=== PATIENT | male | born 1935 | race Caucasian/White ===

== ENCOUNTER 2016-06-20 12:11 | Emergency (ER) | payer MEDICARE, MEDICAID ==
[2016-06-20 12:25] VITALS: BP 128/67
[2016-06-20] MEDS ORDERED: Tamsulosin 0.4 MG Cap.ER PO ONE (13:42)
--- NOTE | 2016-06-20 13:51 | EDM.PDOC ---
[id number]: [facility] Time Seen by Provider: 06/20/16 13:43 Source of Information: Reports: Patient, Family - History of Present Illness INITIAL COMMENTS - FREE TEXT/NARRATIVE: pt was seen earlier and he had urinary retention and was quite uncomfortable. He went home and tried to pull his cath out. he had the bulb in the urethra. He began to bleed a fair amount in the urine and he was brought back in by private car. Onset: Sudden Duration: Hour(s):, Other (Pt tried to pull out his cath. ) Associated Symptoms: Reports: No Other Symptoms Abdominal Pain Score (Numeric/FACES): 2 - Related Data Allergies Allergy/AdvReac Type Severity Reaction Status Date / Time No Known Allergies Allergy Verified 01/29/15 05:31 Home Meds: Home Meds Acetaminophen [Tylenol Arthritis Pain] 650 mg PO Q6H PRN 01/29/15 [History] Aspirin 325 mg PO DAILY 01/29/15 [History] Carbamide Peroxide [Debrox 6.5% Otic Soln] 5 drop EARBOTH ASDIRECTED PRN [History] Clotrimazole [Clotrimazole] 1 applic TOP BID PRN 01/29/15 [History] Fluocinonide [Lidex 0.05% Crm] 1 applic TOP TID 01/29/15 [History] Lisinopril/Hydrochlorothiazide [Lisinopril-Hctz 20-12.5 mg Tab] 1 tab PO DAILY 01/29/15 [History] Metoprolol Tartrate [Lopressor] 50 mg PO BID 01/29/15 [History] Polyethylene Glycol 3350 [MiraLAX] 17 g PO DAILY 01/29/15 [History] Simvastatin [Simvastatin] 40 mg PO BEDTIME 01/29/15 [History] Triamcinolone Acetonide [Kenalog 0.1% Crm] 1 applic TOP BID PRN 01/29/15 [ History] levETIRAcetam [Levetiracetam] 500 mg PO BID 01/29/15 [History] Past Medical History HEENT History: Reports: Hard of Hearing Cardiovascular History: Reports: CAD, High Cholesterol, Hypertension Gastrointestinal History: Reports: Other (See Below) Other Gastrointestinal History: large RlQ hernia soft, size of basketball, denies pain tympanic to palp Genitourinary History: Reports: Other (See Below) Other Genitourinary History: diffculty voiding Neurological History: Reports: CVA, Seizure Oncologic (Cancer) History: Reports: Other (See Below) Other Oncologic History: skin ca Dermatologic History: Reports: Seborrheic Dermatitis, Other (See Below) Other Dermatologic History: fungus toenails. chronic skin rashes on scalp and face Social & Family History - Tobacco Use Smoking Status *Q: Never Smoker Years of Tobacco use: 50 - Recreational Drug Use Recreational Drug Use: No ED ROS GENERAL - Review of Systems Review Of Systems: See Below Constitutional: Reports: No Symptoms HEENT: Reports: No Symptoms Respiratory: Reports: No Symptoms Cardiovascular: Reports: No Symptoms Endocrine: Reports: No Symptoms GI/Abdominal: Reports: No Symptoms : Reports: Other (urine in the cath looked quite bloody and there were a few small clots. ) Musculoskeletal: Reports: No Symptoms Skin: Reports: No Symptoms ED EXAM, GI/ABD - Physical Exam Exam: See Below Text/Narrative:: pt arrived with bloody urine after he tried to pull out his hammer cath Exam Limited By: No Limitations General Appearance: Alert, Other ( alot of instruction was given to the pt that he could not pull out his cath. ) Eyes: Bilateral: Normal Appearance, EOMI Ears: Normal TMs Nose: Normal Inspection (Male) Exam: Other ( urine is quite bloody. ) Rectal (Males) Exam: Deferred Extremities: Normal Inspection Course - Vital Signs Last Recorded V/S: Last Vital Signs Temp 97.7 C H 06/20/16 12:24 Pulse 60 06/20/16 12:24 Resp 20 06/20/16 12:24 BP 128/67 06/20/16 12:24 Pulse Ox - Orders/Labs/Meds Labs: Laboratory Tests 06/20/16 06/20/16 06/20/16 Range/Units 12:25 12:25 12:34 WBC 10.5 (4.5-11.0) K/uL RBC 3.98 L (4.30-5.90) M/uL Hgb 12.6 (12.0-15.0) g/dL Hct 36.9 L (40.0-54.0) % MCV 93 (80-98) fL MCH 32 H (27-31) pg MCHC 34 (32-36) % Plt Count 279 (150-400) K/uL Neut % (Auto) 74 H (36-66) % Lymph % (Auto) 17 L (24-44) % [place] % (Auto) 7 H (2-6) % Eos % (Auto) 2 (2-4) % Baso % (Auto) 1 (0-1) % Sodium 136 L (140-148) mmol/L Potassium 3.3 L (3.6-5.2) mmol/L Chloride 98 L (100-108) mmol/L Carbon Dioxide 28 (21-32) mmol/L Anion Gap 13.3 (5.0-14.0) mmol/L BUN 14 (7-18) mg/dL Creatinine 1.3 (0.8-1.3) mg/dL Est Cr Clr Drug Dosing 35.26 mL/min Estimated GFR (MDRD) 53 L (>60) Glucose 94 (74-106) mg/dL Calcium 7.8 L (8.5-10.1) mg/dL Total Bilirubin 0.8 (0.2-1.0) mg/dL AST 18 (15-37) U/L ALT 11 L (12-78) U/L Alkaline Phosphatase 107 (46-116) U/L Total Protein 6.7 (6.4-8.2) g/dL Albumin 2.8 L (3.4-5.0) g/dL Globulin 3.9 H (2.3-3.5) g/dL Albumin/Globulin Ratio 0.7 L (1.2-2.2) Urine Color Yellow Urine Appearance Clear Urine pH 7.0 (4.5-8.0) Ur Specific [place] 1.010 (1.008-1.030) Urine Protein Negative (NEGATIVE) mg/dL Urine Glucose (UA) Normal (NEGATIVE) mg/dL Urine Ketones Negative (NEGATIVE) mg/dL Urine Occult Blood Negative (NEGATIVE) Urine Nitrite Negative (NEGAITVE) Urine Bilirubin Negative (NEGATIVE) Urine Urobilinogen Normal (NORMAL) mg/dL Ur Leukocyte Esterase Negative (NEGATIVE) Urine RBC 0-5 (0-5) Urine WBC 0-5 (0-5) Ur Epithelial Cells Not seen Amorphous Sediment Not seen Urine Bacteria Not seen Urine Mucus Rare Meds: Medications Discontinued Medications Generic Name Dose Route Start Last Admin Trade Name Freq PRN Reason Stop Dose Admin Tamsulosin HCl 0.4 mg 06/20/16 13:42 06/20/16 14:05 Flomax PO 06/20/16 13:43 0.4 mg ONETIME ONE Administration - Re-Assessments/Exams Free Text/Narrative Re-Assessment/Exam: 06/21/16 18:31 cath was readjusted and put back in the bladder. Departure - Departure Time of Disposition: 14:40 Disposition: Home, Self-Care 01 Clinical Impression: Urinary retention - Discharge Information Instructions: Acute Urinary Retention, Male, [id number] Referrals: PCP,None [Primary Care Provider] - Forms: ED Department Discharge Care Plan Goals: appt with Dr Washington for Friday for cath removal, flomax >4 daily, push fluids rtc if problem.
== END 2016-06-20 14:37 | disposition home or self-care (01) ==
LOC: JP.ED 12:11
DX: R33.9 Retention of urine, unspecified (principal); I25.10 Atherosclerotic heart disease of native coronary artery without angina pectoris; E78.00 Pure hypercholesterolemia, unspecified; I10 Essential (primary) hypertension; Z86.73 Personal history of transient ischemic attack (TIA), and cerebral infarction without residual deficits; Z79.82 Long term (current) use of aspirin; Z79.899 Other long term (current) drug therapy
CPT/HCPCS: 36415; 51702; 80053; 81001; 85025; 99284; A9270; 99283

== ENCOUNTER 2016-06-20 15:47 | Emergency (ER) | payer MEDICARE, MEDICAID ==
[2016-06-20 16:49] VITALS: BP 156/75
--- NOTE | 2016-06-20 18:36 | EDM.PDOC ---
ED HPI GENERAL MEDICAL PROBLEM - General Chief Complaint: Genitourinary Problem Stated Complaint: RECHECK Time Seen by Provider: 06/20/16 18:20 Source of Information: Reports: Family History Limitations: Reports: No Limitations - History of Present Illness INITIAL COMMENTS - FREE TEXT/NARRATIVE: History of present illness: [This patient was turned over and to me by Dr. Chapa. He has urinary retention and needs a Min catheter in but has a tendency to pull it out. He came in and then another one was placed he was observed and it was functioning although there was some bloody returns. His daughters are trying to take care of him at home. But eventually this may not work but we're going to try again. He is a patient of Dr. Washington's.] Review of systems: As per history of present illness and below otherwise all systems reviewed and negative. Past medical history: As per history of present illness and as reviewed below otherwise noncontributory. Surgical history: As per history of present illness and as reviewed below otherwise noncontributory. Social history: No reported history of drug or alcohol abuse. Family history: As per history of present illness and as reviewed below otherwise noncontributory. Physical exam: See Dr. Chapa note for physical exam Diagnostics: [] Therapeutics: [] Impression: [Urinary retention requiring Min catheter] Plan: [He is to followup with Dr. Washington but if he becomes obstructed he'll have to return to the ER] Definitive disposition and diagnosis as appropriate pending reevaluation and review of above. Penis Pain Score (Numeric/FACES): 4 - Related Data Allergies Allergy/AdvReac Type Severity Reaction Status Date / Time No Known Allergies Allergy Verified 01/29/15 05:31 Home Meds: Home Meds Acetaminophen [Tylenol Arthritis Pain] 650 mg PO Q6H PRN 01/29/15 [History] Aspirin 325 mg PO DAILY 01/29/15 [History] Carbamide Peroxide [Debrox 6.5% Otic Soln] 5 drop EARBOTH ASDIRECTED PRN [History] Clotrimazole [Clotrimazole] 1 applic TOP BID PRN 01/29/15 [History] Fluocinonide [Lidex 0.05% Crm] 1 applic TOP TID 01/29/15 [History] Lisinopril/Hydrochlorothiazide [Lisinopril-Hctz 20-12.5 mg Tab] 1 tab PO DAILY 01/29/15 [History] Metoprolol Tartrate [Lopressor] 50 mg PO BID 01/29/15 [History] Polyethylene Glycol 3350 [MiraLAX] 17 g PO DAILY 01/29/15 [History] Simvastatin [Simvastatin] 40 mg PO BEDTIME 01/29/15 [History] Triamcinolone Acetonide [Kenalog 0.1% Crm] 1 applic TOP BID PRN 01/29/15 [ History] levETIRAcetam [Levetiracetam] 500 mg PO BID 01/29/15 [History] Past Medical History HEENT History: Reports: Hard of hearing Cardiovascular History: Reports: CAD, High cholesterol, Hypertension Gastrointestinal History: Reports: Other (see below) Other Gastrointestinal History: large RlQ hernia soft, size of basketball, denies pain tympanic to palp Genitourinary History: Reports: Other (see below) Other Genitourinary History: diffculty voiding Neurological History: Reports: CVA, Seizure Oncologic (Cancer) History: Reports: Other (see below) Other Oncologic History: skin ca Dermatologic History: Reports: Seborrheic dermatitis, Other (see below) Other Dermatologic History: fungus toenails. chronic skin rashes on scalp and face Social & Family History - Tobacco Use Smoking Status *Q: Never Smoker Years of Tobacco use: 50 - Recreational Drug Use Recreational Drug Use: No ED ROS GENERAL - Review of Systems Review Of Systems: ROS reveals no pertinent complaints other than HPI. ED EXAM, RENAL/ - Physical Exam Exam: Not Obtained Course - Vital Signs Last Recorded V/S: Last Vital Signs Temp 36.3 C 06/20/16 15:57 Pulse 76 06/20/16 15:57 Resp 18 06/20/16 15:57 BP 156/75 H 06/20/16 15:57 Pulse Ox 96 06/20/16 15:57 Departure - Departure Time of Disposition: 18:35 Disposition: Home, Self-Care 01 Condition: good Clinical Impression: Urinary retention - Discharge Information Forms: ED Department Discharge Additional Instructions: Please make an appointment to see Dr. Washington
== END 2016-06-20 18:47 | disposition home or self-care (01) ==
LOC: JP.ED 15:47
DX: R33.9 Retention of urine, unspecified (principal); I25.10 Atherosclerotic heart disease of native coronary artery without angina pectoris; E78.00 Pure hypercholesterolemia, unspecified; I10 Essential (primary) hypertension; Z79.82 Long term (current) use of aspirin; Z79.899 Other long term (current) drug therapy; Z86.73 Personal history of transient ischemic attack (TIA), and cerebral infarction without residual deficits
CPT/HCPCS: 36415; 51702; 80053; 81001; 85025; 99282; 99283; 99284; A9270

== ENCOUNTER 2016-08-05 15:20 | Emergency (ER) | payer MEDICARE, MEDICAID ==
[2016-08-05] MEDS ORDERED: Sodium Chloride 0.9% 10 ML Syringe FLUSH PRN ×2 (15:51→16:22)
--- NOTE | 2016-08-05 15:56 | EDM.PDOC ---
ED HPI GENERAL MEDICAL PROBLEM - General Chief Complaint: Back Pain or Injury Stated Complaint: [facility] Time Seen by Provider: 08/05/16 15:44 Source of Information: Reports: Patient, EMS, Family, RN Notes Reviewed History Limitations: Reports: No Limitations - History of Present Illness INITIAL COMMENTS - FREE TEXT/NARRATIVE: 80-year-old gentleman presents emergency department day complaint of chest and back pain, he has a known seizure disorder he had a seizure yesterday had fallen to the ground injured himself. He presents today for increasing level pain predominately in his chest wall on the right side and mid back. He is physically impaired difficult with hearing, majority review of systems was taken from family - Related Data Allergies Allergy/AdvReac Type Severity Reaction Status Date / Time No Known Allergies Allergy Verified 01/29/15 05:31 Home Meds: Home Meds Acetaminophen [Tylenol Arthritis Pain] 650 mg PO Q6H PRN 01/29/15 [History] Aspirin 325 mg PO DAILY 01/29/15 [History] Carbamide Peroxide [Debrox 6.5% Otic Soln] 5 drop EARBOTH ASDIRECTED PRN [History] Clotrimazole [Clotrimazole] 1 applic TOP BID PRN 01/29/15 [History] Fluocinonide [Lidex 0.05% Crm] 1 applic TOP TID 01/29/15 [History] Lisinopril/Hydrochlorothiazide [Lisinopril-Hctz 20-12.5 mg Tab] 1 tab PO DAILY 01/29/15 [History] Metoprolol Tartrate [Lopressor] 50 mg PO BID 01/29/15 [History] Polyethylene Glycol 3350 [MiraLAX] 17 g PO DAILY 01/29/15 [History] Simvastatin [Simvastatin] 40 mg PO BEDTIME 01/29/15 [History] Triamcinolone Acetonide [Kenalog 0.1% Crm] 1 applic TOP BID PRN 01/29/15 [ History] levETIRAcetam [Levetiracetam] 500 mg PO BID 01/29/15 [History] Tamsulosin [Tamsulosin 24 Hr] 0.4 mg PO DAILY 08/05/16 [History] Past Medical History HEENT History: Reports: Hard of Hearing Cardiovascular History: Reports: CAD, High Cholesterol, Hypertension Gastrointestinal History: Reports: Other (See Below) Other Gastrointestinal History: large RlQ hernia soft, size of basketball, denies pain tympanic to palp Genitourinary History: Reports: Other (See Below) Other Genitourinary History: diffculty voiding Neurological History: Reports: CVA, Seizure Oncologic (Cancer) History: Reports: Other (See Below) Other Oncologic History: skin ca Dermatologic History: Reports: Seborrheic Dermatitis, Other (See Below) Other Dermatologic History: fungus toenails. chronic skin rashes on scalp and face - Infectious Disease History Infectious Disease History: Reports: Chicken Pox, Measles, Mumps Social & Family History - Tobacco Use Smoking Status *Q: Never Smoker Years of Tobacco use: 50 - Recreational Drug Use Recreational Drug Use: No Review of Systems - Review of Systems Review Of Systems: See Below Constitutional: Reports: No Symptoms Respiratory: Reports: Shortness of Breath Cardiovascular: Reports: Chest Pain GI/Abdominal: Reports: Abdominal Pain Genitourinary: Reports: No Symptoms Musculoskeletal: Reports: No Symptoms Skin: Reports: No Symptoms Neurological: Reports: No Symptoms ED EXAM, GENERAL - Physical Exam Exam: See Below Exam Limited By: Physical Impairment General Appearance: Alert, No Apparent Distress Head: Atraumatic, Normocephalic Neck: Normal Inspection, Supple, Non-Tender, Full Range of Motion Respiratory/Chest: No Respiratory Distress, Lungs Clear, Normal Breath Sounds, No Accessory Muscle Use, Other (Tender to palpation along the right anterior wall) Cardiovascular: Regular Rate, Rhythm, No Murmur GI/Abdominal: Normal Bowel Sounds, Soft, Other (Large ventral hernia appreciated on the right side) Back Exam: Normal Inspection, Full Range of Motion, Paraspinal Tenderness ( Right side). No: CVA Tenderness (R), CVA Tenderness (L) Extremities: Normal Inspection, Non-Tender, Pedal Edema Course - Vital Signs Last Recorded V/S: Last Vital Signs Temp 96.6 F 08/05/16 15:21 Pulse 86 08/05/16 16:58 Resp 16 08/05/16 16:58 BP 154/80 H 08/05/16 16:58 Pulse Ox 90 L 08/05/16 16:58 - Orders/Labs/Meds Orders: Active Orders 24 hr Category Date Time Status Peripheral IV Care [RC] . DIRECTED Care 08/05/16 15:52 Active Chest w Cont [CT] Stat Exams 08/05/16 15:51 Taken CULTURE URINE [RM] Urgent Lab 08/05/16 17:38 Uncollected KEPPRA [REF] Stat Lab 08/05/16 16:01 Received Sodium Chloride 0.9% [Saline Flush] Med 08/05/16 15:51 Active 10 ml FLUSH ASDIRECTED PRN Sodium Chloride 0.9% [Saline Flush] Med 08/05/16 16:22 Active 10 ml FLUSH ONETIME PRN Peripheral IV Insertion Adult [OM.PC] Urgent Oth 08/05/16 15:51 Ordered Medication Orders Sodium Chloride (Saline Flush) 10 ml FLUSH ASDIRECTED PRN PRN Reason: Keep Vein Open Last Admin: 08/05/16 16:13 Dose: 10 ml Sodium Chloride (Saline Flush) 10 ml FLUSH ONETIME PRN PRN Reason: PER RADIOLOGY PROTOCOL Last Admin: 08/05/16 16:59 Dose: 10 ml Labs: Laboratory Tests 08/05/16 08/05/16 08/05/16 Range/Units 16:01 16:01 16:01 WBC 10.3 (4.5-11.0) K/uL RBC 3.85 L (4.30-5.90) M/uL Hgb 11.9 L (12.0-15.0) g/dL Hct 36.1 L (40.0-54.0) % MCV 94 (80-98) fL MCH 31 (27-31) pg MCHC 33 (32-36) % Plt Count 222 (150-400) K/uL Neut % (Auto) 78 H (36-66) % Lymph % (Auto) 12 L (24-44) % [place] % (Auto) 9 H (2-6) % Eos % (Auto) 1 L (2-4) % Baso % (Auto) 1 (0-1) % Sodium 130 L (140-148) mmol/L Potassium 3.6 (3.6-5.2) mmol/L Chloride 96 L (100-108) mmol/L Carbon Dioxide 29 (21-32) mmol/L Anion Gap 8.6 (5.0-14.0) mmol/L BUN 17 (7-18) mg/dL Creatinine 1.2 (0.8-1.3) mg/dL Est Cr Clr Drug Dosing 38.18 mL/min Estimated GFR (MDRD) 58 L (>60) Glucose 89 (74-106) mg/dL Calcium 8.2 L (8.5-10.1) mg/dL Total Bilirubin 1.9 H D (0.2-1.0) mg/dL AST 18 (15-37) U/L ALT 8 L (12-78) U/L Alkaline Phosphatase 127 H (46-116) U/L Troponin I < 0.017 (0.000-0.056) ng/mL Total Protein 6.8 (6.4-8.2) g/dL Albumin 2.5 L (3.4-5.0) g/dL Globulin 4.3 H (2.3-3.5) g/dL Albumin/Globulin Ratio 0.6 L (1.2-2.2) Urine Color Urine Appearance Urine pH (4.5-8.0) Ur Specific [place] (1.008-1.030) Urine Protein (NEGATIVE) mg/dL Urine Glucose (UA) (NEGATIVE) mg/dL Urine Ketones (NEGATIVE) mg/dL Urine Occult Blood (NEGATIVE) Urine Nitrite (NEGAITVE) Urine Bilirubin (NEGATIVE) Urine Urobilinogen (NORMAL) mg/dL Ur Leukocyte Esterase (NEGATIVE) Urine RBC (0-5) Urine WBC (0-5) Ur Epithelial Cells Amorphous Sediment Urine Bacteria Urine Mucus // Range/Units 16:42 WBC (4.5-11.0) K/uL RBC (4.30-5.90) M/uL Hgb (12.0-15.0) g/dL Hct (40.0-54.0) % MCV (80-98) fL MCH (27-31) pg MCHC (32-36) % Plt Count (150-400) K/uL Neut % (Auto) (36-66) % Lymph % (Auto) (24-44) % [place] % (Auto) (2-6) % Eos % (Auto) (2-4) % Baso % (Auto) (0-1) % Sodium (140-148) mmol/L Potassium (3.6-5.2) mmol/L Chloride (100-108) mmol/L Carbon Dioxide (21-32) mmol/L Anion Gap (5.0-14.0) mmol/L BUN (7-18) mg/dL Creatinine (0.8-1.3) mg/dL Est Cr Clr Drug Dosing mL/min Estimated GFR (MDRD) (>60) Glucose (74-106) mg/dL Calcium (8.5-10.1) mg/dL Total Bilirubin (0.2-1.0) mg/dL AST (15-37) U/L ALT (12-78) U/L Alkaline Phosphatase (46-116) U/L Troponin I (0.000-0.056) ng/mL Total Protein (6.4-8.2) g/dL Albumin (3.4-5.0) g/dL Globulin (2.3-3.5) g/dL Albumin/Globulin Ratio (1.2-2.2) Urine Color Yellow Urine Appearance Slightly cloudy Urine pH 7.0 (4.5-8.0) Ur Specific [place] 1.005 L (1.008-1.030) Urine Protein Negative (NEGATIVE) mg/dL Urine Glucose (UA) Normal (NEGATIVE) mg/dL Urine Ketones Negative (NEGATIVE) mg/dL Urine Occult Blood Negative (NEGATIVE) Urine Nitrite Negative (NEGAITVE) Urine Bilirubin Negative (NEGATIVE) Urine Urobilinogen Normal (NORMAL) mg/dL Ur Leukocyte Esterase Moderate (NEGATIVE) Urine RBC Not seen (0-5) Urine WBC 10-20 H (0-5) Ur Epithelial Cells Not seen Amorphous Sediment Not seen Urine Bacteria Few Urine Mucus Not seen Meds: Medications Generic Name Dose Route Start Last Admin Trade Name Freq PRN Reason Stop Dose Admin Sodium Chloride 10 ml 08/05/16 15:51 08/05/16 16:13 Saline Flush FLUSH 10 ml ASDIRECTED PRN Administration Keep Vein Open Sodium Chloride 10 ml 08/05/16 16:22 08/05/16 16:59 Saline Flush FLUSH 10 ml ONETIME PRN Administration PER RADIOLOGY PROTOCOL Discontinued Medications Generic Name Dose Route Start Last Admin Trade Name Freq PRN Reason Stop Dose Admin Hydromorphone HCl 1 mg 08/05/16 17:37 Dilaudid IM 08/05/16 17:38 ONETIME ONE Sodium Chloride 75 mls @ 3 mls/sec 08/05/16 16:22 08/05/16 16:59 Normal Saline IV 08/05/16 16:23 3 mls/sec ONETIME ONE Administration Iopamidol 100 ml 08/05/16 16:22 08/05/16 16:59 Isovue-300 (61%) IV 08/05/16 16:23 100 ml . DIRECTED PRN Administration RADIOLOGY EXAM Departure - Departure Time of Disposition: 17:47 Disposition: Home, Self-Care 01 Condition: Fair Clinical Impression: Urinary tract infection Qualifiers: Urinary tract infection type: acute cystitis Hematuria presence: without hematuria Qualified Code(s): N30.00 - Acute cystitis without hematuria Ribs, multiple fractures Qualifiers: Encounter type: initial encounter Fracture type: closed Laterality: right Qualified Code(s): S22.41XA - Multiple fractures of ribs, right side, initial encounter for closed fracture - Discharge Information Forms: ED Department Discharge Additional Instructions: take full course of antibiotics,, use ibuprofen for baseline pain control use Percocet for breakthrough pain, Please followup with your primary care provider in 3-5 days if not better, please call return to the emergency department with worsening of symptoms. - My Orders Last 24 Hours: My Active Orders 08/05/16 15:51 Chest w Cont [CT] Stat Sodium Chloride 0.9% [Saline Flush] 10 ml FLUSH ASDIRECTED PRN Peripheral IV Insertion Adult [OM.PC] Urgent 08/05/16 15:52 Peripheral IV Care [RC] . DIRECTED 08/05/16 16:01 KEPPRA [REF] Stat 08/05/16 16:22 Sodium Chloride 0.9% [Saline Flush] 10 ml FLUSH ONETIME PRN 08/05/16 17:38 CULTURE URINE [RM] Urgent - Assessment/Plan Last 24 Hours: My Active Orders 08/05/16 15:51 Chest w Cont [CT] Stat Sodium Chloride 0.9% [Saline Flush] 10 ml FLUSH ASDIRECTED PRN Peripheral IV Insertion Adult [OM.PC] Urgent 08/05/16 15:52 Peripheral IV Care [RC] . DIRECTED 08/05/16 16:01 KEPPRA [REF] Stat 08/05/16 16:22 Sodium Chloride 0.9% [Saline Flush] 10 ml FLUSH ONETIME PRN 08/05/16 17:38 CULTURE URINE [RM] Urgent Plan: Assessment Acuity = acute Site and laterality = breakthrough seizures resulting in rib fractures of 567 and 9,with urinary tract infection Etiology = unclear etiology Manifestations = none Location of injury = home Lab values = CBC unremarkable sodium low at 1:30 consistent hyponatremia bilirubin elevated 1.9 consistent hyperbilirubinemia albumin low at 2.5 consistent hypoalbuminemia urinalysis reveals 10-20 WBCs consistent with pyuria cultures pending Keppra levels pending CT scan shows new rib fractures 567 and 9 nondisplaced multiple old for rib fractures are appreciated there is a small right pleural effusion and as well is a 5 x 3 mm nodule right upper lobe recommend follow-up in one year Plan I did review lab work CT scan results them he did receive Dilaudid in the ED for pain control plan is to discharge home with Percocet and also started him on ciprofloxacin for 10 days for his urinary tract infection cultures pending him follow-up with primary care 3-5 days for reevaluation Patient was in agreement with the plan all questions were answered, they were instructed to return to the emergency department or call for worsening symptoms. This note was dictated using [employer] voice recognition software please call with any questions.
[2016-08-05] MEDS ORDERED: Sodium Chloride 0.9% 75 ML IV ONE (16:22)
[2016-08-05] MEDS ORDERED: Iopamidol 612 MG/ML 100 ML Bottle IV PRN (16:22)
[2016-08-05 16:59] VITALS: BP 154/80
[2016-08-05] MEDS ORDERED: HYDROmorphone 1 MG/ML Syringe IM ONE (17:37)
== END 2016-08-05 18:05 | disposition home or self-care (01) ==
LOC: JP.ED 15:20
DX: S22.41XA Multiple fractures of ribs, right side, initial encounter for closed fracture (principal); G40.909 Epilepsy, unspecified, not intractable, without status epilepticus; N30.00 Acute cystitis without hematuria; I25.10 Atherosclerotic heart disease of native coronary artery without angina pectoris; E78.00 Pure hypercholesterolemia, unspecified; I10 Essential (primary) hypertension; Z86.73 Personal history of transient ischemic attack (TIA), and cerebral infarction without residual deficits; Z79.899 Other long term (current) drug therapy; Z79.82 Long term (current) use of aspirin; W19.XXXA Unspecified fall, initial encounter
CPT/HCPCS: 36415; 71260; 80053; 80177; 81001; 84484; 85025; 87086; 87088; 87186; 96372; 99284; J1170; J7030; J7050; Q9967

== ENCOUNTER 2016-08-19 18:23 | Inpatient (IN) | payer MEDICARE, MEDICAID ==
[2016-08-19] MEDS ORDERED: Sodium Chloride 0.9% 10 ML Syringe FLUSH PRN (18:29)
[2016-08-19] MEDS ORDERED: Sodium Chloride 0.9% 1,000 ML IV SCH ×3 (18:30→21:30)
[2016-08-19] MEDS ORDERED: cefTRIAXone 1 GM in Sodium Chloride 0.9% 50 ML IV ONE (19:38)
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
[2016-08-19] MEDS ORDERED: HYDROmorphone 0.5 MG/0.5 ML Syringe IVPUSH ONE (20:06)
[2016-08-19] MEDS ORDERED: Ondansetron 4 MG/2 ML SDV IV PRN (21:29)
[2016-08-19] MEDS ORDERED: Clotrimazole 1% Crm 30 GM Tube TOP PRN (21:33)
[2016-08-20] MEDS ORDERED: Simvastatin 20 MG Tab PO ONE (01:00)
[2016-08-20] MEDS ORDERED: levETIRAcetam 250 MG Tab PO ONE (01:00)
--- NOTE | 2016-08-20 02:24 | HP ---
CHIEF COMPLAINT: Increased weakness and abdominal pain. HISTORY OF PRESENT ILLNESS: An 80-year-old, who lives with one of his daughters, sounds like his condition has gradually worsened over the last few weeks getting progressively weaker, not eating very well. Sounds like at home, couple weeks ago, he fell and injured some ribs, was seen by his regular physician, I believe Dr. Washington. I am not sure what transpired with that visit, sounds like few days ago he was up walking with his walker. Since then, has not been able to get up and has had some stool accidents, although it sounds like it has not been overly loose up until when he arrived in the ER, was advised by emergency room physician he has had a long-standing large abdominal hernia and that they elected not to do anything with, it sounds like it has been causing him more pain and has had some rash to the area, which has possibly worsened, difficult to tell based on what the family is telling me. Patient has not had any nausea or vomiting. No report of any chest pain or trouble breathing. Sounds like he maybe ate a little bit this morning, but overall has not be eating very much over the last few days at least. PAST MEDICAL HISTORY: He has had a history of seizure disorder, hypertension, had a history of skin cancer what sounds like melanoma which spread to the lymph nodes. He has had an aneurysm, possibly surgery to his abdomen number of years ago, has had what sounds like bowel obstruction surgery in the past, but this is not clear either. MEDICATIONS: Aspirin 325 mg daily, acetaminophen 650 mg q.6 hours p.r.n., clotrimazole topically b.i.d., Lidex cream t.i.d., lisinopril hydrochlorothiazide 20/12.5 daily, metoprolol 50 mg b.i.d., MiraLAX daily, simvastatin 40 mg at bedtime, tamsulosin 0.4 mg daily, triamcinolone cream b.i.d., Keppra 500 mg b.i.d. ALLERGIES: NO KNOWN DRUG ALLERGIES. SOCIAL HISTORY: Remote smoker. No alcohol use. Lives with his daughter. FAMILY HISTORY: Unknown. REVIEW OF SYSTEMS: Really unable to get much of anything else out of him and that is what I am able to get out of the patient's family. OBJECTIVE: VITAL SIGNS: Pulse 52, blood pressure 107/74, O2 saturation 96% on room air. HEENT: The patient has dentures, but he is not wearing them at present. Dry mucous membranes, it is difficult for me to get him to open up his mouth. NECK: Supple. No obvious thyromegaly, JVD, carotid bruits. LUNGS: I could listen to sounded clear, he would not really take a deep breath. HEART: Sounds regular. ABDOMEN: Soft. Does have a protuberant ventral hernia with erythema and superficial ulcerations underneath it with generalized discomfort. EXTREMITIES: No significant edema. SKIN: Other than his abdomen was unremarkable, though I was not able to see his hips or buttocks if he has any pressure sores there. LABORATORY DATA: White count 27,000, hemoglobin 11.8, platelets 413,000. Sodium 134, potassium 4.2, chloride 100, BUN is 37, creatinine 1.9, glucose 151. Liver functions, AST and ALT were normal. Alkaline phosphatase was 185. Lactic acid was elevated at 2.9. ASSESSMENT: Increased weakness with dehydration, admitted for IV fluids. Has had renal insufficiency and we will recheck this in the morning and see if it improves with IV fluids. The patient is already started on Rocephin for possible abdominal cellulitis, which we will re-evaluate in the morning. I did talk to the daughter who is from [place] just happened to be here, not his primary caregiver whom he lives with and she was insisting that he probably is going to need [facility]cf[facility] placement, so we will have Social Service work on that tomorrow also and we will admit him under inpatient, anticipate more than two midnight stay. Judson Dunbar MD /[id number]
[2016-08-20] MEDS ORDERED: Clotrimazole 1% Crm 30 GM Tube TOP PRN (07:24)
[2016-08-20] MEDS: levETIRAcetam 250 MG Tab PO SCH ×2 (09:43→21:00)
[2016-08-20] MEDS: Aspirin 325 MG Tab.EC PO SCH (09:43)
[2016-08-20] MEDS: FLUOCINONIDE 0.05% TOP SCH ×3 (09:43→21:24)
[2016-08-20] MEDS: Tamsulosin 0.4 MG Cap.ER PO SCH (09:43)
--- NOTE | 2016-08-20 11:30 | CR ---
Chest 1V Frontal INDICATION: pain FINDINGS: Comparison CT 08/05/2016. Sternotomy. Multiple subacute and chronic right rib fractures hav e not significantly changed. No evidence for pneumothorax. Diffuse osteopenia. Hyperinflation. Small right pleural effusion.
[2016-08-20] MEDS: Acetaminophen 325 MG Tab PO PRN ×2 (12:05→18:29)
[2016-08-20] MEDS ORDERED: Piperacillin/Tazobactam 3.375 GM in Sodium Chloride 0.9% 50 ML IV SCH (13:30)
--- NOTE | 2016-08-20 13:39 | PCM.PN ---
- General Info Date of Service: 08/20/16 - Review of Systems General: Reports: Fever, Weakness Systems Review Comment:: This patient is an 80-year-old gentleman who was admitted through the emergency department last night with cellulitis and sepsis. Blood cultures were obtained and he has been started on IV antibiotic therapy with Rocephin. He is remained very weak and minimally responsive, complicated by marked hearing impairment and dementia. He was very unkempt when he arrived and and very hypotensive with systolic pressures into the 60s. There was evidence of sepsis with significant hypotension as well as elevation in lactic acid level. Vital signs have stabilized after he received IV fluids and his lactic acid level has normalized. He has a very large hernia of the abdominal wall which extends over his groin resulting in a significant pannus and underlying erythema consistent with cellulitis. Likely has a component of concomitant yeast infection. - Patient Data Vitals - most recent: Last Vital Signs Temp 98.2 F 08/20/16 07:50 Pulse 83 08/20/16 07:50 Resp 14 08/20/16 07:50 BP 113/53 L 08/20/16 07:50 Pulse Ox 96 08/20/16 07:50 Weight - most recent: 160 lb 0.008 oz I&O - last 24 hours: Intake & Output 08/19/16 08/20/16 08/20/16 22:59 06:59 14:59 Intake Total 742 118 Output Total 250 Balance 492 118 Lab Results last 24 hrs: Laboratory Results - last 24 hr 08/19/16 08/20/16 08/20/16 Range/Units 21:50 05:00 05:00 WBC 31.6 H* (4.5-11.0) K/uL RBC 3.62 L (4.30-5.90) M/uL Hgb 11.2 L (12.0-15.0) g/dL Hct 34.2 L (40.0-54.0) % MCV 95 (80-98) fL MCH 31 (27-31) pg MCHC 33 (32-36) % Plt Count 335 (150-400) K/uL Sodium 138 L (140-148) mmol/L Potassium 4.2 (3.6-5.2) mmol/L Chloride 105 (100-108) mmol/L Carbon Dioxide 23 (21-32) mmol/L Anion Gap 14.2 H (5.0-14.0) mmol/L BUN 40 H (7-18) mg/dL Creatinine 2.2 H (0.8-1.3) mg/dL Est Cr Clr Drug Dosing 20.83 mL/min Estimated GFR (MDRD) 29 L (>60) Glucose 111 H (74-106) mg/dL Lactic Acid (0.4-2.0) mmol/L Calcium 7.5 L (8.5-10.1) mg/dL Urine Color Yellow Urine Appearance Slightly cloudy Urine pH 5.0 (4.5-8.0) Ur Specific [place] 1.015 (1.008-1.030) Urine Protein Negative (NEGATIVE) mg/dL Urine Glucose (UA) Normal (NEGATIVE) mg/dL Urine Ketones Negative (NEGATIVE) mg/dL Urine Occult Blood Large (NEGATIVE) Urine Nitrite Negative (NEGAITVE) Urine Bilirubin Small (NEGATIVE) Urine Urobilinogen Normal (NORMAL) mg/dL Ur Leukocyte Esterase Small (NEGATIVE) Urine RBC 20-30 H (0-5) Urine WBC 5-10 H (0-5) Ur Epithelial Cells Few Amorphous Sediment Few Urine Bacteria Moderate Urine Mucus Moderate 07//17 Range/Units 08:22 WBC (4.5-11.0) K/uL RBC (4.30-5.90) M/uL Hgb (12.0-15.0) g/dL Hct (40.0-54.0) % MCV (80-98) fL MCH (27-31) pg MCHC (32-36) % Plt Count (150-400) K/uL Sodium (140-148) mmol/L Potassium (3.6-5.2) mmol/L Chloride (100-108) mmol/L Carbon Dioxide (21-32) mmol/L Anion Gap (5.0-14.0) mmol/L BUN (7-18) mg/dL Creatinine (0.8-1.3) mg/dL Est Cr Clr Drug Dosing mL/min Estimated GFR (MDRD) (>60) Glucose (74-106) mg/dL Lactic Acid 2.0 (0.4-2.0) mmol/L Calcium (8.5-10.1) mg/dL Urine Color Urine Appearance Urine pH (4.5-8.0) Ur Specific [place] (1.008-1.030) Urine Protein (NEGATIVE) mg/dL Urine Glucose (UA) (NEGATIVE) mg/dL Urine Ketones (NEGATIVE) mg/dL Urine Occult Blood (NEGATIVE) Urine Nitrite (NEGAITVE) Urine Bilirubin (NEGATIVE) Urine Urobilinogen (NORMAL) mg/dL Ur Leukocyte Esterase (NEGATIVE) Urine RBC (0-5) Urine WBC (0-5) Ur Epithelial Cells Amorphous Sediment Urine Bacteria Urine Mucus Med Orders - Current: Current Medications Acetaminophen (Tylenol) 650 mg PO Q4H PRN PRN Reason: Pain (Mild 1-3)/fever Last Admin: 08/20/16 12:05 Dose: 650 mg Aspirin (Ecotrin) 325 mg PO DAILY [facility] Last Admin: 08/20/16 09:43 Dose: 325 mg Clotrimazole (Lotrimin Af 1% Crm) 0 gm TOP BID PRN PRN Reason: Rash Enoxaparin Sodium (Lovenox) 30 mg SUBCUT DAILY [facility] Fluocinonide (Lidex 0.05% Crm) 0 gm TOP TID [facility] Last Admin: 08/20/16 09:43 Dose: Not Given Sodium Chloride (Normal Saline) 1,000 mls @ 125 mls/hr IV ASDIRECTED [facility] Piperacillin/Tazobactam/ (Dextrose 3.375 gm/ Premix) 50 mls @ 100 mls/hr IV Q6H [facility] Levetiracetam (Keppra) 500 mg PO BID [facility] Last Admin: 08/20/16 09:43 Dose: 500 mg Nystatin (Nystop) 0 gm TOP QID [facility] Ondansetron HCl (Zofran) 4 mg IV Q4H PRN PRN Reason: Nausea/Vomiting Simvastatin (Zocor) 40 mg PO BEDTIME [facility] Sodium Chloride (Saline Flush) 10 ml FLUSH ASDIRECTED PRN PRN Reason: Keep Vein Open Last Admin: 08/19/16 19:32 Dose: 10 ml Tamsulosin HCl (Flomax) 0.4 mg PO DAILY [facility] Last Admin: 08/20/16 09:43 Dose: 0.4 mg Vancomycin HCl (Vancomycin) 1 gm IV .PHARMACY TO DOSE [facility] Discontinued Medications Hydromorphone HCl (Dilaudid) 0.25 mg IVPUSH ONETIME ONE Stop: 08/19/16 20:07 Last Admin: 08/19/16 20:15 Dose: 0.25 mg Sodium Chloride (Normal Saline) 1,000 mls @ 999 mls/hr IV ASDIRECTED [facility] Last Admin: 08/19/16 19:33 Dose: 999 mls/hr Sodium Chloride (Normal Saline) 1,000 mls @ 999 mls/hr IV ASDIRECTED [facility] Last Admin: 08/19/16 19:50 Dose: 999 mls/hr Ceftriaxone Sodium 1 gm/ (Sodium Chloride) 50 mls @ 100 mls/hr IV ONETIME ONE Stop: 08/19/16 20:07 Last Admin: 08/19/16 19:51 Dose: 100 mls/hr Ceftriaxone Sodium 1 gm/ (Sodium Chloride) 50 mls @ 100 mls/hr IV Q24H [facility] Levetiracetam (Keppra) 500 mg PO ONETIME ONE Stop: 08/20/16 01:01 Last Admin: 08/20/16 00:56 Dose: 500 mg Simvastatin (Zocor) 40 mg PO ONETIME ONE Stop: 08/20/16 01:01 Last Admin: 08/20/16 00:56 Dose: 40 mg - Exam Quality Assessment: urine catheter, DVT prophylaxis General: lethargic Lungs: Clear to auscultation, Normal respiratory effort Cardiovascular: Regular Rate, Regular Rhythm, No Murmurs Abdomen: bowel sounds present, soft, no tenderness, no distension, other ( Significant cellulitis of the lower abdominal wall, large abdominal wall hernia) Extremities: no edema - Problem List Review Problem List Initiated/Reviewed/Updated: Yes - My Orders Last 24 Hours: My Active Orders 08/20/16 13:45 Enoxaparin [Lovenox] 30 mg SUBCUT DAILY 08/20/16 14:00 Piperacillin/Tazobactam/Dext [Zosyn in Dextrose Iso-Osmotic 3.375 GM] 3.375 gm Premix Bag 1 bag IV Q6H Vancomycin 1 gm IV .PHARMACY TO DOSE 08/20/16 16:00 Nystatin [Nystop] 0 gm TOP QID 08/21/16 05:00 CBC WITH AUTO DIFF [HEME] Timed COMPREHENSIVE METABOLIC PN,CMP [CHEM] Timed MAGNESIUM [CHEM] Timed - Plan Plan:: ASSESSMENT AND PLAN ABDOMINAL WALL CELLULITIS WITH SEPSIS-he has improved since admission, blood pressure has stabilized and lactic acid level has normalized. He is had no recurrent temperature elevations. He's unable to provide significant information because of ongoing lethargy as well as underlying dementia. I suspect that there is a component of underlying yeast infection -Continue IV fluids -Blood cultures pending -Discontinue Rocephin -IV vancomycin and Zosyn pending culture results -Nystatin powder 4 times daily HYPERTENSION-blood pressures have improved following hydration -Continue to hold antihypertensive therapy SEIZURE DISORDER -Continue current therapy with [facility] PALLIATIVE CARE-family is willing to proceed with antibiotic therapy and IV fluids to but does not want further aggressive interventions or evaluation area MAINTENANCE ISSUES -DVT prophylaxis; Lovenox 30 mg subcutaneous daily -GI prophylaxis; not indicated -Min catheter; placed in emergency department because of inability to urinate -Nutrition; regular diet -Nicotine dependence; not required CODE STATUS-DNR/DNI ADMISSION STATUS-patient will be admitted to inpatient status, expect at least a 2 night hospital stay for evaluation and management of problems as outlined above. At the time of this admission I do not reasonably expected evaluation and management of this problem will require more than a 96 hour hospital stay. DISPOSITION-anticipate discharge to home after the hospital stay. PRIMARY CARE PROVIDER-Dr. Washington
[2016-08-20] MEDS: Piperacillin/Tazobactam/Dext 3.375 GM in Premix Bag 1 BAG IV SCH ×2 (13:47→19:48)
[2016-08-20] MEDS: Enoxaparin 30 MG/0.3 ML Syringe SUBCUT SCH (13:47)
[2016-08-20] MEDS ORDERED: Vancomycin 1 GM SDV IV SCH (14:00)
[2016-08-20] MEDS ORDERED: Sodium Chloride 0.9% 500 ML IV ONE (15:30)
[2016-08-20] MEDS: Nystatin Topical Powder 15 GM Bottle TOP SCH ×2 (15:37→21:22)
[2016-08-20] MEDS: Vancomycin 1.1 GM in Sodium Chloride 0.9% 250 ML IV SCH (15:46)
[2016-08-20] MEDS ORDERED: Nystatin Topical Powder 15 GM Bottle TOP SCH (16:00)
[2016-08-20] MEDS ORDERED: Sodium Chloride 0.9% 1,000 ML IV ONE (16:30)
[2016-08-20] MEDS ORDERED: Sodium Chloride 0.9% 1,000 ML IV SCH (18:15)
[2016-08-20] MEDS ORDERED: cefTRIAXone 1 GM in Sodium Chloride 0.9% 50 ML IV SCH ×2 (18:30→19:00)
[2016-08-20] MEDS: Simvastatin 20 MG Tab PO SCH (21:00)
[2016-08-20] MEDS: Sodium Chloride 0.9% 1,000 ML IV SCH (23:07)
[2016-08-21] MEDS: Piperacillin/Tazobactam/Dext 3.375 GM in Premix Bag 1 BAG IV SCH ×4 (01:49→19:52)
[2016-08-21] MEDS: Nystatin Topical Powder 15 GM Bottle TOP SCH ×4 (05:40→21:27)
[2016-08-21] MEDS: Sodium Chloride 0.9% 1,000 ML IV SCH (07:11)
[2016-08-21] MEDS: levETIRAcetam 250 MG Tab PO SCH ×2 (08:35→20:49)
[2016-08-21] MEDS: Aspirin 325 MG Tab.EC PO SCH (08:35)
[2016-08-21] MEDS: Tamsulosin 0.4 MG Cap.ER PO SCH (08:35)
[2016-08-21] MEDS ORDERED: Potassium Chloride 20 MEQ Tab.ER PO ONE (09:00)
[2016-08-21] MEDS: FLUOCINONIDE 0.05% TOP SCH ×3 (09:10→21:27)
--- NOTE | 2016-08-21 09:31 | PCM.PN ---
- General Info Date of Service: 08/21/16 - Review of Systems General: Reports: Weakness. Denies: Fever, Chills Pulmonary: Reports: no symptoms Cardiovascular: Reports: No Symptoms Gastrointestinal: Reports: Abdominal pain. Denies: Nausea, Vomiting Systems Review Comment:: This patient unfortunately experienced recurrent sepsis yesterday afternoon requiring large-volume fluid infusions. He was transferred to the intensive care unit with the intention of using IV norepinephrine but by the time he arrived in the ICU his blood pressure had stabilized and has remained relatively stable since then. White blood cell count has improved modestly and he has not had significant temperature elevations thus far. He is more alert this morning, communication is compromised by severe hearing impairment and underlying dementia. - Patient Data Vitals - most recent: Last Vital Signs Temp 98 F 08/21/16 07:00 Pulse 96 08/21/16 07:00 Resp 18 08/21/16 07:00 BP 112/56 L 08/21/16 07:00 Pulse Ox 93 L 08/21/16 07:00 Weight - most recent: 160 lb 0.008 oz I&O - last 24 hours: Intake & Output 08/20/16 08/21/16 08/21/16 22:59 06:59 14:59 Intake Total 3271 2098 Output Total 290 365 Balance 2981 1733 Lab Results last 24 hrs: Laboratory Results - last 24 hr 08/21/16 08/21/16 Range/Units 05:57 05:57 WBC 27.4 H (4.5-11.0) K/uL RBC 3.41 L (4.30-5.90) M/uL Hgb 10.7 L (12.0-15.0) g/dL Hct 32.2 L (40.0-54.0) % MCV 94 (80-98) fL MCH 31 (27-31) pg MCHC 33 (32-36) % Plt Count 352 (150-400) K/uL Neut % (Auto) 92 H (36-66) % Lymph % (Auto) 3 L (24-44) % [place] % (Auto) 4 (2-6) % Eos % (Auto) 0 L (2-4) % Baso % (Auto) 0 (0-1) % Sodium 141 (140-148) mmol/L Potassium 3.6 (3.6-5.2) mmol/L Chloride 110 H (100-108) mmol/L Carbon Dioxide 18 L (21-32) mmol/L Anion Gap 16.6 H (5.0-14.0) mmol/L BUN 38 H (7-18) mg/dL Creatinine 2.2 H (0.8-1.3) mg/dL Est Cr Clr Drug Dosing 20.83 mL/min Estimated GFR (MDRD) 29 L (>60) Glucose 74 (74-106) mg/dL Calcium 7.1 L (8.5-10.1) mg/dL Magnesium 0.9 L (1.8-2.4) mg/dL Total Bilirubin 0.6 D (0.2-1.0) mg/dL AST 20 (15-37) U/L ALT 7 L (12-78) U/L Alkaline Phosphatase 141 H (46-116) U/L Total Protein 5.2 L (6.4-8.2) g/dL Albumin 1.5 L (3.4-5.0) g/dL Globulin 3.7 H (2.3-3.5) g/dL Albumin/Globulin Ratio 0.4 L (1.2-2.2) Med Orders - Current: Current Medications Acetaminophen (Tylenol) 650 mg PO Q4H PRN PRN Reason: Pain (Mild 1-3)/fever Last Admin: 08/20/16 18:29 Dose: 650 mg Aspirin (Ecotrin) 325 mg PO DAILY [facility] Last Admin: 08/21/16 08:35 Dose: 325 mg Clotrimazole (Lotrimin Af 1% Crm) 0 gm TOP BID PRN PRN Reason: Rash Enoxaparin Sodium (Lovenox) 30 mg SUBCUT Q24H [facility] Last Admin: 08/20/16 13:47 Dose: 30 mg Fluocinonide (Lidex 0.05% Crm) 0 gm TOP TID [facility] Last Admin: 08/21/16 09:10 Dose: Not Given Piperacillin/Tazobactam/ (Dextrose 3.375 gm/ Premix) 50 mls @ 100 mls/hr IV Q6H [facility] Last Admin: 08/21/16 08:35 Dose: 100 mls/hr Vancomycin HCl 1.1 gm/ Sodium (Chloride) 250 mls @ 167 mls/hr IV Q24H [facility] Last Admin: 08/20/16 15:46 Dose: 167 mls/hr Sodium Chloride (Normal Saline) 1,000 mls @ 125 mls/hr IV ASDIRECTED [facility] Last Admin: 08/21/16 07:11 Dose: 125 mls/hr Magnesium Sulfate 2 gm/ Premix 50 mls @ 25 mls/hr IV Q6H [facility] Stop: 08/21/16 23:59 Levetiracetam (Keppra) 500 mg PO BID [facility] Last Admin: 08/21/16 08:35 Dose: 500 mg Nystatin (Nystop) 0 gm TOP QID [facility] Last Admin: 08/21/16 09:09 Dose: 1 applic Ondansetron HCl (Zofran) 4 mg IV Q4H PRN PRN Reason: Nausea/Vomiting Simvastatin (Zocor) 40 mg PO BEDTIME [facility] Last Admin: 08/20/16 21:00 Dose: 40 mg Sodium Chloride (Saline Flush) 10 ml FLUSH ASDIRECTED PRN PRN Reason: Keep Vein Open Last Admin: 08/19/16 19:32 Dose: 10 ml Tamsulosin HCl (Flomax) 0.4 mg PO DAILY [facility] Last Admin: 08/21/16 08:35 Dose: 0.4 mg Discontinued Medications Hydromorphone HCl (Dilaudid) 0.25 mg IVPUSH ONETIME ONE Stop: 08/19/16 20:07 Last Admin: 08/19/16 20:15 Dose: 0.25 mg Sodium Chloride (Normal Saline) 1,000 mls @ 999 mls/hr IV ASDIRECTED [facility] Last Admin: 08/19/16 19:33 Dose: 999 mls/hr Sodium Chloride (Normal Saline) 1,000 mls @ 999 mls/hr IV ASDIRECTED [facility] Last Admin: 08/19/16 19:50 Dose: 999 mls/hr Ceftriaxone Sodium 1 gm/ (Sodium Chloride) 50 mls @ 100 mls/hr IV ONETIME ONE Stop: 08/19/16 20:07 Last Admin: 08/19/16 19:51 Dose: 100 mls/hr Sodium Chloride (Normal Saline) 1,000 mls @ 125 mls/hr IV ASDIRECTED [facility] Ceftriaxone Sodium 1 gm/ (Sodium Chloride) 50 mls @ 100 mls/hr IV Q24H [facility] Sodium Chloride (Normal Saline) 500 mls @ 999 mls/hr IV ASDIRECTED ONE Stop: 08/20/16 16:00 Last Admin: 08/20/16 15:38 Dose: 999 mls/hr Sodium Chloride (Normal Saline) 1,000 mls @ 999 mls/hr IV ASDIRECTED ONE Stop: 08/20/16 17:30 Last Admin: 08/20/16 17:16 Dose: 999 mls/hr Sodium Chloride (Normal Saline) 1,000 mls @ 250 mls/hr IV ASDIRECTED [facility] Stop: 08/20/16 22:15 Last Admin: 08/20/16 19:04 Dose: 250 mls/hr Levetiracetam (Keppra) 500 mg PO ONETIME ONE Stop: 08/20/16 01:01 Last Admin: 08/20/16 00:56 Dose: 500 mg Potassium Chloride (Klor-Con M20) 40 meq PO ONETIME ONE Stop: 08/21/16 09:01 Last Admin: 08/21/16 08:35 Dose: 40 meq Simvastatin (Zocor) 40 mg PO ONETIME ONE Stop: 08/20/16 01:01 Last Admin: 08/20/16 00:56 Dose: 40 mg Vancomycin HCl (Vancomycin) 1 gm IV .PHARMACY TO DOSE [facility] Stop: 08/20/16 18:00 - Exam General: alert, cooperative, mild distress Lungs: Clear to auscultation, Normal respiratory effort Cardiovascular: Regular Rate, Regular Rhythm, No Murmurs Abdomen: bowel sounds present, soft, no distension, tenderness, other (Large abdominal wall hernia cellulitis in the pannus and extending into the groin.) Extremities: no edema - Problem List Review Problem List Initiated/Reviewed/Updated: Yes - My Orders Last 24 Hours: My Active Orders 08/20/16 14:00 Enoxaparin [Lovenox] 30 mg SUBCUT Q24H Piperacillin/Tazobactam/Dext [Zosyn in Dextrose Iso-Osmotic 3.375 GM] 3.375 gm Premix Bag 1 bag IV Q6H 08/20/16 15:00 Vancomycin 1.1 gm Sodium Chloride 0.9% [Normal Saline] 250 ml IV Q24H 08/20/16 16:00 Nystatin [Nystop] 0 gm TOP QID 08/20/16 18:22 Communication Order [RC] STAT 08/20/16 21:45 Sodium Chloride 0.9% [Normal Saline] 1,000 ml IV ASDIRECTED 08/21/16 10:00 Magnesium Sulfate/Water [Magnesium Sulfate 2 GM in Water 50 ML] 2 gm Premix Bag 1 bag IV Q6H 08/22/16 05:00 BASIC METABOLIC PANEL,BMP [CHEM] Timed CBC WITH AUTO DIFF [HEME] Timed MAGNESIUM [CHEM] Timed - Plan Plan:: ASSESSMENT AND PLAN ABDOMINAL WALL CELLULITIS WITH SEPSIS-recurrent sepsis yesterday afternoon with hypotension and decrease in urine output. Stabilized after fluid infusion, will continue to monitor in the ICU. -Continue IV fluids -Blood cultures pending -Discontinue Rocephin -IV vancomycin and Zosyn pending culture results -Nystatin powder 4 times daily HYPERTENSION-blood pressures have improved following hydration -Continue to hold antihypertensive therapy CHRONIC KIDNEY DISEASE STAGE III WITH ACUTE KIDNEY INJURY-renal function compromised by hypotension associated with sepsis. Expect renal function to improve over the next few days. -Continue to closely monitor urine output and renal function SEIZURE DISORDER -Continue current therapy with [facility] PALLIATIVE CARE-family is willing to proceed with antibiotic therapy and IV fluids to but does not want further aggressive interventions or evaluation. MAINTENANCE ISSUES -DVT prophylaxis; Lovenox 30 mg subcutaneous daily -GI prophylaxis; not indicated -Min catheter; placed in emergency department because of inability to urinate -Nutrition; regular diet -Nicotine dependence; not required CODE STATUS-DNR/DNI ADMISSION STATUS-patient will be admitted to inpatient status, expect at least a 2 night hospital stay for evaluation and management of problems as outlined above. At the time of this admission I do not reasonably expected evaluation and management of this problem will require more than a 96 hour hospital stay. DISPOSITION-anticipate discharge to home after the hospital stay. PRIMARY CARE PROVIDER-Dr. [place]
[2016-08-21] MEDS: Magnesium Sulfate/Water 2 GM in Premix Bag 1 BAG IV SCH ×3 (12:00→21:28)
[2016-08-21] MEDS: Acetaminophen 325 MG Tab PO PRN (14:38)
[2016-08-21] MEDS ORDERED: Morphine 2 MG/ML Syringe IVPUSH ONE ×2 (15:02→15:50)
[2016-08-21] MEDS: Enoxaparin 30 MG/0.3 ML Syringe SUBCUT SCH (15:19)
[2016-08-21] MEDS: Vancomycin 1.1 GM in Sodium Chloride 0.9% 250 ML IV SCH (15:21)
[2016-08-21] MEDS ORDERED: Alum Hydrox/Mag Hydrox/Simeth 15 ML, Lidocaine 2% 15 ML PO ONE ×2 (15:48)
[2016-08-21] MEDS: Melatonin 3 MG Tab PO SCH (20:48)
[2016-08-21] MEDS: Simvastatin 20 MG Tab PO SCH (20:48)
[2016-08-22] MEDS: Sodium Chloride 0.9% 1,000 ML IV SCH ×2 (00:39→10:13)
[2016-08-22] MEDS: Piperacillin/Tazobactam/Dext 3.375 GM in Premix Bag 1 BAG IV SCH ×4 (01:51→20:15)
[2016-08-22] MEDS: Nystatin Topical Powder 15 GM Bottle TOP SCH ×4 (03:30→22:51)
[2016-08-22] MEDS: Acetaminophen 325 MG Tab PO PRN (08:43)
[2016-08-22] MEDS: levETIRAcetam 250 MG Tab PO SCH ×2 (08:44→20:19)
[2016-08-22] MEDS: Aspirin 325 MG Tab.EC PO SCH (08:44)
[2016-08-22] MEDS: Tamsulosin 0.4 MG Cap.ER PO SCH (08:44)
--- NOTE | 2016-08-22 09:21 | PCM.PN ---
- General Info Date of Service: 08/22/16 Functional Status: Reports: pain controlled - Review of Systems General: Reports: Weakness. Denies: Fever, Chills Pulmonary: Reports: no symptoms Cardiovascular: Reports: No Symptoms Gastrointestinal: Reports: No symptoms Systems Review Comment:: This patient has shown further improvement over the past 24 hours. Area of cellulitis seems to be significantly improved over the last 2 days, he is been afebrile, white blood cell count has improved but remains significantly elevated. Overall vital signs have been stable other than a transient drop in blood pressure this morning. - Patient Data Vitals - most recent: Last Vital Signs Temp 96.1 F 08/22/16 07:00 Pulse 89 08/22/16 09:00 Resp 17 08/22/16 09:00 BP 112/69 08/22/16 09:00 Pulse Ox 99 08/22/16 09:00 Weight - most recent: 160 lb 0.008 oz I&O - last 24 hours: Intake & Output 08/21/16 08/22/16 08/22/16 22:59 06:59 14:59 Intake Total 2290 1640 530 Output Total 275 550 100 Balance 2014 1090 430 Lab Results last 24 hrs: Laboratory Results - last 24 hr 08/22/16 08/22/16 Range/Units 04:35 04:35 WBC 25.0 H (4.5-11.0) K/uL RBC 3.04 L (4.30-5.90) M/uL Hgb 9.5 L (12.0-15.0) g/dL Hct 28.6 L (40.0-54.0) % MCV 94 (80-98) fL MCH 31 (27-31) pg MCHC 33 (32-36) % Plt Count 324 (150-400) K/uL Neut % (Auto) 91 H (36-66) % Lymph % (Auto) 5 L (24-44) % [place] % (Auto) 4 (2-6) % Eos % (Auto) 0 L (2-4) % Baso % (Auto) 0 (0-1) % Sodium 143 (140-148) mmol/L Potassium 4.1 (3.6-5.2) mmol/L Chloride 113 H (100-108) mmol/L Carbon Dioxide 21 (21-32) mmol/L Anion Gap 13.1 (5.0-14.0) mmol/L BUN 33 H (7-18) mg/dL Creatinine 1.9 H (0.8-1.3) mg/dL Est Cr Clr Drug Dosing 24.12 mL/min Estimated GFR (MDRD) 34 L (>60) Glucose 101 (74-106) mg/dL Calcium 7.3 L (8.5-10.1) mg/dL Magnesium 2.0 D (1.8-2.4) mg/dL Med Orders - Current: Current Medications Acetaminophen (Tylenol) 650 mg PO Q4H PRN PRN Reason: Pain (Mild 1-3)/fever Last Admin: 08/22/16 08:43 Dose: 650 mg Aspirin (Ecotrin) 325 mg PO DAILY [facility] Last Admin: 08/22/16 08:44 Dose: 325 mg Clotrimazole (Lotrimin Af 1% Crm) 0 gm TOP BID PRN PRN Reason: Rash Enoxaparin Sodium (Lovenox) 30 mg SUBCUT Q24H [facility] Last Admin: 08/21/16 15:19 Dose: 30 mg Fluocinonide (Lidex 0.05% Crm) 0 gm TOP TID [facility] Last Admin: 08/21/16 21:27 Dose: Not Given Piperacillin/Tazobactam/ (Dextrose 3.375 gm/ Premix) 50 mls @ 100 mls/hr IV Q6H [facility] Last Admin: 08/22/16 08:16 Dose: 100 mls/hr Vancomycin HCl 1.1 gm/ Sodium (Chloride) 250 mls @ 167 mls/hr IV Q24H [facility] Last Admin: 08/21/16 15:21 Dose: 167 mls/hr Sodium Chloride (Normal Saline) 1,000 mls @ 50 mls/hr IV ASDIRECTED [facility] Levetiracetam (Keppra) 500 mg PO BID [facility] Last Admin: 08/22/16 08:44 Dose: 500 mg Melatonin (Melatonin) 9 mg PO BEDTIME [facility] Last Admin: 08/21/16 20:48 Dose: 9 mg Nystatin (Nystop) 0 gm TOP QID [facility] Last Admin: 08/22/16 03:30 Dose: 1 applic Ondansetron HCl (Zofran) 4 mg IV Q4H PRN PRN Reason: Nausea/Vomiting Simvastatin (Zocor) 40 mg PO BEDTIME [facility] Last Admin: 08/21/16 20:48 Dose: 40 mg Sodium Chloride (Saline Flush) 10 ml FLUSH ASDIRECTED PRN PRN Reason: Keep Vein Open Last Admin: 08/19/16 19:32 Dose: 10 ml Tamsulosin HCl (Flomax) 0.4 mg PO DAILY [facility] Last Admin: 08/22/16 08:44 Dose: 0.4 mg Discontinued Medications Al Hydroxide/Mg Hydroxide 15 (ml/ Lidocaine HCl 15 ml) 0 ml PO ONETIME ONE Stop: 08/21/16 15:49 Last Admin: 08/21/16 16:06 Dose: 30 ml Hydromorphone HCl (Dilaudid) 0.25 mg IVPUSH ONETIME ONE Stop: 08/19/16 20:07 Last Admin: 08/19/16 20:15 Dose: 0.25 mg Sodium Chloride (Normal Saline) 1,000 mls @ 999 mls/hr IV ASDIRECTED [facility] Last Admin: 08/19/16 19:33 Dose: 999 mls/hr Sodium Chloride (Normal Saline) 1,000 mls @ 999 mls/hr IV ASDIRECTED [facility] Last Admin: 08/19/16 19:50 Dose: 999 mls/hr Ceftriaxone Sodium 1 gm/ (Sodium Chloride) 50 mls @ 100 mls/hr IV ONETIME ONE Stop: 08/19/16 20:07 Last Admin: 08/19/16 19:51 Dose: 100 mls/hr Sodium Chloride (Normal Saline) 1,000 mls @ 125 mls/hr IV ASDIRECTED [facility] Ceftriaxone Sodium 1 gm/ (Sodium Chloride) 50 mls @ 100 mls/hr IV Q24H [facility] Sodium Chloride (Normal Saline) 500 mls @ 999 mls/hr IV ASDIRECTED ONE Stop: 08/20/16 16:00 Last Admin: 08/20/16 15:38 Dose: 999 mls/hr Sodium Chloride (Normal Saline) 1,000 mls @ 999 mls/hr IV ASDIRECTED ONE Stop: 08/20/16 17:30 Last Admin: 08/20/16 17:16 Dose: 999 mls/hr Sodium Chloride (Normal Saline) 1,000 mls @ 250 mls/hr IV ASDIRECTED [facility] Stop: 08/20/16 22:15 Last Admin: 08/20/16 19:04 Dose: 250 mls/hr Sodium Chloride (Normal Saline) 1,000 mls @ 125 mls/hr IV ASDIRECTED [facility] Last Admin: 08/22/16 00:39 Dose: 125 mls/hr Magnesium Sulfate 2 gm/ Premix 50 mls @ 25 mls/hr IV Q6H [facility] Stop: 08/21/16 23:59 Last Admin: 08/21/16 21:28 Dose: 25 mls/hr Levetiracetam (Keppra) 500 mg PO ONETIME ONE Stop: 08/20/16 01:01 Last Admin: 08/20/16 00:56 Dose: 500 mg Morphine Sulfate (Morphine) 2 mg IVPUSH ONETIME ONE Stop: 08/21/16 15:03 Last Admin: 08/21/16 15:18 Dose: 2 mg Morphine Sulfate (Morphine) 2 mg IVPUSH ONETIME ONE Stop: 08/21/16 15:51 Last Admin: 08/21/16 19:26 Dose: Not Given Potassium Chloride (Klor-Con M20) 40 meq PO ONETIME ONE Stop: 08/21/16 09:01 Last Admin: 08/21/16 08:35 Dose: 40 meq Simvastatin (Zocor) 40 mg PO ONETIME ONE Stop: 08/20/16 01:01 Last Admin: 08/20/16 00:56 Dose: 40 mg Vancomycin HCl (Vancomycin) 1 gm IV .PHARMACY TO DOSE [facility] Stop: 08/20/16 18:00 - Exam Quality Assessment: supplemental oxygen, DVT prophylaxis General: alert, cooperative, no acute distress Lungs: Clear to auscultation, Normal respiratory effort Cardiovascular: Regular Rate, Regular Rhythm, No Murmurs Abdomen: bowel sounds present, soft, no tenderness, no distension Extremities: edema Skin: other (Area of cellulitis in the pannus and groin has improved significantly) - Problem List Review Problem List Initiated/Reviewed/Updated: Yes - My Orders Last 24 Hours: My Active Orders 08/21/16 15:49 EKG Documentation Completion [RC] URGENT EKG 12 Lead [EK] Routine 08/21/16 21:00 Melatonin 9 mg PO BEDTIME 08/22/16 09:30 Sodium Chloride 0.9% @ 50 MLS/HR(1000ml) Sodium Chloride 0.9% [Normal Saline] 1 ,000 ml IV ASDIRECTED 08/23/16 05:00 CBC WITH AUTO DIFF [HEME] Timed COMPREHENSIVE METABOLIC PN,CMP [CHEM] Timed MAGNESIUM [CHEM] Timed - Plan Plan:: ASSESSMENT AND PLAN ABDOMINAL WALL CELLULITIS WITH SEPSIS-significant improvement in cellulitis, no evidence recurrent sepsis other than transient drop in blood pressure this morning. Follow-up blood pressures improved without significant intervention. Cultures remain negative thus far. -Decrease IV rate to 50 mL/h -Blood cultures pending -IV vancomycin and Zosyn pending culture results -Nystatin powder 4 times daily HYPERTENSION-blood pressures have improved following hydration -Continue to hold antihypertensive therapy CHRONIC KIDNEY DISEASE STAGE III WITH ACUTE KIDNEY creatinine has improved since yesterday, urine output has been adequate -Continue to closely monitor urine output and renal function SEIZURE DISORDER -Continue current therapy with [facility] PALLIATIVE CARE-family is willing to proceed with antibiotic therapy and IV fluids to but does not want further aggressive interventions or evaluation. MAINTENANCE ISSUES -DVT prophylaxis; Lovenox 30 mg subcutaneous daily -GI prophylaxis; not indicated -Min catheter; placed in emergency department because of inability to urinate -Nutrition; regular diet -Nicotine dependence; not required CODE STATUS-DNR/DNI ADMISSION STATUS-patient will be admitted to inpatient status, expect at least a 2 night hospital stay for evaluation and management of problems as outlined above. At the time of this admission I do not reasonably expected evaluation and management of this problem will require more than a 96 hour hospital stay. DISPOSITION-anticipate discharge to home after the hospital stay. PRIMARY CARE PROVIDER-Dr. [place]
[2016-08-22] MEDS: FLUOCINONIDE 0.05% TOP SCH (09:30)
[2016-08-22] MEDS: Enoxaparin 30 MG/0.3 ML Syringe SUBCUT SCH (15:00)
[2016-08-22] MEDS: Vancomycin 1.3 GM in Sodium Chloride 0.9% 250 ML IV SCH (16:06)
[2016-08-22] MEDS: Simvastatin 20 MG Tab PO SCH (20:19)
[2016-08-22] MEDS: Melatonin 3 MG Tab PO SCH (20:19)
[2016-08-23] MEDS: Piperacillin/Tazobactam/Dext 3.375 GM in Premix Bag 1 BAG IV SCH ×4 (03:17→19:48)
[2016-08-23] MEDS: Nystatin Topical Powder 15 GM Bottle TOP SCH ×4 (05:13→21:10)
[2016-08-23] MEDS: Sodium Chloride 0.9% 1,000 ML IV SCH (08:36)
[2016-08-23] MEDS: Tamsulosin 0.4 MG Cap.ER PO SCH (08:37)
[2016-08-23] MEDS: Aspirin 325 MG Tab.EC PO SCH (08:37)
[2016-08-23] MEDS: levETIRAcetam 250 MG Tab PO SCH ×2 (08:37→21:10)
[2016-08-23] MEDS ORDERED: Magnesium Sulfate/Water 2 GM in Premix Bag 1 BAG IV ONE (09:00)
--- NOTE | 2016-08-23 10:42 | PCM.PN ---
- General Info Date of Service: 08/23/16 Functional Status: Reports: pain controlled, tolerating diet - Review of Systems General: Reports: Weakness. Denies: Fever, Chills Pulmonary: Reports: no symptoms Cardiovascular: Reports: No Symptoms Gastrointestinal: Reports: No symptoms Psychiatric: Reports: confusion Systems Review Comment:: Mr. Medina has remained stable over the past 24 hours, vital signs have been good and he has remained afebrile. Cellulitis has improved since yesterday, he remains confused and lethargic. - Patient Data Vitals - most recent: Last Vital Signs Temp 96.8 F 08/23/16 05:00 Pulse 76 08/23/16 10:00 Resp 14 08/23/16 10:00 BP 135/56 L 08/23/16 10:00 Pulse Ox 93 L 08/23/16 10:00 Weight - most recent: 160 lb 0.008 oz I&O - last 24 hours: Intake & Output 08/22/16 08/23/16 08/23/16 22:59 06:59 14:59 Intake Total 1227 1000 460 Output Total 235 325 200 Balance 992 675 260 Lab Results last 24 hrs: Laboratory Results - last 24 hr 08/22/16 08/23/16 08/23/16 Range/Units 14:51 06:01 06:01 WBC 17.7 H (4.5-11.0) K/uL RBC 3.09 L (4.30-5.90) M/uL Hgb 9.5 L (12.0-15.0) g/dL Hct 29.0 L (40.0-54.0) % MCV 94 (80-98) fL MCH 31 (27-31) pg MCHC 33 (32-36) % Plt Count 352 (150-400) K/uL Neut % (Auto) 88 H (36-66) % Lymph % (Auto) 6 L (24-44) % [place]od % (Auto) 4 (2-6) % Eos % (Auto) 2 (2-4) % Baso % (Auto) 0 (0-1) % Sodium 142 (140-148) mmol/L Potassium 3.8 (3.6-5.2) mmol/L Chloride 112 H (100-108) mmol/L Carbon Dioxide 23 (21-32) mmol/L Anion Gap 10.8 (5.0-14.0) mmol/L BUN 27 H (7-18) mg/dL Creatinine 1.6 H (0.8-1.3) mg/dL Est Cr Clr Drug Dosing 28.64 mL/min Estimated GFR (MDRD) 42 L (>60) Glucose 85 (74-106) mg/dL Calcium 7.5 L (8.5-10.1) mg/dL Magnesium 1.6 L (1.8-2.4) mg/dL Total Bilirubin 0.5 (0.2-1.0) mg/dL AST 85 H D (15-37) U/L ALT 34 D (12-78) U/L Alkaline Phosphatase 192 H (46-116) U/L Total Protein 4.6 L (6.4-8.2) g/dL Albumin 1.2 L (3.4-5.0) g/dL Globulin 3.4 (2.3-3.5) g/dL Albumin/Globulin Ratio 0.4 L (1.2-2.2) Vancomycin Trough 12.9 (10.0-20.0) ug/mL Med Orders - Current: Current Medications Acetaminophen (Tylenol) 650 mg PO Q4H PRN PRN Reason: Pain (Mild 1-3)/fever Last Admin: 08/22/16 08:43 Dose: 650 mg Aspirin (Ecotrin) 325 mg PO DAILY [facility] Last Admin: 08/23/16 08:37 Dose: 325 mg Enoxaparin Sodium (Lovenox) 30 mg SUBCUT Q24H [facility] Last Admin: 08/22/16 15:00 Dose: 30 mg Piperacillin/Tazobactam/ (Dextrose 3.375 gm/ Premix) 50 mls @ 100 mls/hr IV Q6H [facility] Last Admin: 08/23/16 08:39 Dose: 100 mls/hr Vancomycin HCl 1.3 gm/ Sodium (Chloride) 250 mls @ 167 mls/hr IV Q24H [facility] Last Admin: 08/22/16 16:06 Dose: 167 mls/hr Magnesium Sulfate 2 gm/ Premix 50 mls @ 25 mls/hr IV ONETIME ONE Stop: 08/23/16 10:59 Last Admin: 08/23/16 08:37 Dose: 25 mls/hr Levetiracetam (Keppra) 500 mg PO BID [facility] Last Admin: 08/23/16 08:37 Dose: 500 mg Melatonin (Melatonin) 9 mg PO BEDTIME [facility] Last Admin: 08/22/16 20:19 Dose: 9 mg Nystatin (Nystop) 0 gm TOP QID [facility] Last Admin: 08/23/16 10:12 Dose: 1 applic Ondansetron HCl (Zofran) 4 mg IV Q4H PRN PRN Reason: Nausea/Vomiting Simvastatin (Zocor) 40 mg PO BEDTIME [facility] Last Admin: 08/22/16 20:19 Dose: 40 mg Sodium Chloride (Saline Flush) 10 ml FLUSH ASDIRECTED PRN PRN Reason: Keep Vein Open Last Admin: 08/19/16 19:32 Dose: 10 ml Tamsulosin HCl (Flomax) 0.4 mg PO DAILY [facility] Last Admin: 08/23/16 08:37 Dose: 0.4 mg Discontinued Medications Clotrimazole (Lotrimin Af 1% Crm) 0 gm TOP BID PRN PRN Reason: Rash Al Hydroxide/Mg Hydroxide 15 (ml/ Lidocaine HCl 15 ml) 0 ml PO ONETIME ONE Stop: 08/21/16 15:49 Last Admin: 08/21/16 16:06 Dose: 30 ml Fluocinonide (Lidex 0.05% Crm) 0 gm TOP TID [facility] Last Admin: 08/22/16 09:30 Dose: Not Given Hydromorphone HCl (Dilaudid) 0.25 mg IVPUSH ONETIME ONE Stop: 08/19/16 20:07 Last Admin: 08/19/16 20:15 Dose: 0.25 mg Sodium Chloride (Normal Saline) 1,000 mls @ 999 mls/hr IV ASDIRECTED [facility] Last Admin: 08/19/16 19:33 Dose: 999 mls/hr Sodium Chloride (Normal Saline) 1,000 mls @ 999 mls/hr IV ASDIRECTED [facility] Last Admin: 08/19/16 19:50 Dose: 999 mls/hr Ceftriaxone Sodium 1 gm/ (Sodium Chloride) 50 mls @ 100 mls/hr IV ONETIME ONE Stop: 08/19/16 20:07 Last Admin: 08/19/16 19:51 Dose: 100 mls/hr Sodium Chloride (Normal Saline) 1,000 mls @ 125 mls/hr IV ASDIRECTED [facility] Ceftriaxone Sodium 1 gm/ (Sodium Chloride) 50 mls @ 100 mls/hr IV Q24H [facility] Vancomycin HCl 1.1 gm/ Sodium (Chloride) 250 mls @ 167 mls/hr IV Q24H [facility] Last Admin: 08/21/16 15:21 Dose: 167 mls/hr Sodium Chloride (Normal Saline) 500 mls @ 999 mls/hr IV ASDIRECTED ONE Stop: 08/20/16 16:00 Last Admin: 08/20/16 15:38 Dose: 999 mls/hr Sodium Chloride (Normal Saline) 1,000 mls @ 999 mls/hr IV ASDIRECTED ONE Stop: 08/20/16 17:30 Last Admin: 08/20/16 17:16 Dose: 999 mls/hr Sodium Chloride (Normal Saline) 1,000 mls @ 250 mls/hr IV ASDIRECTED [facility] Stop: 08/20/16 22:15 Last Admin: 08/20/16 19:04 Dose: 250 mls/hr Sodium Chloride (Normal Saline) 1,000 mls @ 125 mls/hr IV ASDIRECTED [facility] Last Admin: 08/22/16 00:39 Dose: 125 mls/hr Magnesium Sulfate 2 gm/ Premix 50 mls @ 25 mls/hr IV Q6H [facility] Stop: 08/21/16 23:59 Last Admin: 08/21/16 21:28 Dose: 25 mls/hr Sodium Chloride (Normal Saline) 1,000 mls @ 50 mls/hr IV ASDIRECTED [facility] Last Admin: 08/23/16 08:36 Dose: 50 mls/hr Levetiracetam (Keppra) 500 mg PO ONETIME ONE Stop: 08/20/16 01:01 Last Admin: 08/20/16 00:56 Dose: 500 mg Morphine Sulfate (Morphine) 2 mg IVPUSH ONETIME ONE Stop: 08/21/16 15:03 Last Admin: 08/21/16 15:18 Dose: 2 mg Morphine Sulfate (Morphine) 2 mg IVPUSH ONETIME ONE Stop: 08/21/16 15:51 Last Admin: 08/21/16 19:26 Dose: Not Given Potassium Chloride (Klor-Con M20) 40 meq PO ONETIME ONE Stop: 08/21/16 09:01 Last Admin: 08/21/16 08:35 Dose: 40 meq Simvastatin (Zocor) 40 mg PO ONETIME ONE Stop: 08/20/16 01:01 Last Admin: 08/20/16 00:56 Dose: 40 mg Vancomycin HCl (Vancomycin) 1 gm IV .PHARMACY TO DOSE [facility] Stop: 08/20/16 18:00 - Exam Quality Assessment: urine catheter, DVT prophylaxis General: alert, cooperative, no acute distress Lungs: Clear to auscultation, Normal respiratory effort Cardiovascular: Regular Rate, Regular Rhythm, Murmurs Abdomen: bowel sounds present, soft, no distension, other (Marked improvement of abdominal wall cellulitis) Extremities: no edema Skin: warm, dry, intact - Problem List Review Problem List Initiated/Reviewed/Updated: Yes - My Orders Last 24 Hours: My Active Orders 08/22/16 12:10 Dietary Supplements [RC] WITHMEALSANDBED 08/22/16 16:00 Vancomycin 1.3 gm Sodium Chloride 0.9% [Normal Saline] 250 ml IV Q24H 08/23/16 09:00 Magnesium Sulfate/Water [Magnesium Sulfate 2 GM in Water 50 ML] 2 gm Premix Bag 1 bag IV ONETIME 08/23/16 10:34 Convert IV to Saline Lock [OM.PC] Routine 08/23/16 10:37 Remove Min Catheter [Urinary Catheter Removal] [RC] Per Unit Routine Vital Signs [RC] Q4H 08/24/16 05:00 BASIC METABOLIC PANEL,BMP [CHEM] Timed CBC WITH AUTO DIFF [HEME] Timed MAGNESIUM [CHEM] Timed - Plan Plan:: ASSESSMENT AND PLAN ABDOMINAL WALL CELLULITIS WITH SEPSIS-significant improvement in cellulitis, no evidence recurrent sepsis. Cultures remain negative thus far. -Saline lock IV -Transfer to medical surgical floor -Blood cultures pending -IV vancomycin and Zosyn pending culture results -Nystatin powder 4 times daily HYPERTENSION-blood pressures have improved following hydration -Continue to hold antihypertensive therapy CHRONIC KIDNEY DISEASE STAGE III WITH ACUTE KIDNEY INJURY-urine output has been adequate, renal function continues to improve -Continue to closely monitor urine output and renal function SEIZURE DISORDER -Continue current therapy with [facility] DEMENTIA PALLIATIVE CARE-family is willing to proceed with antibiotic therapy and IV fluids to but does not want further aggressive interventions or evaluation. MAINTENANCE ISSUES -DVT prophylaxis; Lovenox 30 mg subcutaneous daily -GI prophylaxis; not indicated -Min catheter; placed in emergency department because of inability to urinate -Nutrition; regular diet -Nicotine dependence; not required CODE STATUS-DNR/DNI ADMISSION STATUS-patient will be admitted to inpatient status, expect at least a 2 night hospital stay for evaluation and management of problems as outlined above. At the time of this admission I do not reasonably expected evaluation and management of this problem will require more than a 96 hour hospital stay. DISPOSITION-anticipate discharge to home after the hospital stay. PRIMARY CARE PROVIDER-Dr. Washington
[2016-08-23] MEDS: Lactobacillus Rhamnosus GG (Probiotic) Cap PO SCH ×2 (12:47→21:09)
[2016-08-23] MEDS: Enoxaparin 30 MG/0.3 ML Syringe SUBCUT SCH (15:20)
[2016-08-23] MEDS: Vancomycin 1.3 GM in Sodium Chloride 0.9% 250 ML IV SCH (15:21)
[2016-08-23] MEDS: Melatonin 3 MG Tab PO SCH (21:09)
[2016-08-23] MEDS: Simvastatin 20 MG Tab PO SCH (21:09)
[2016-08-24] MEDS: Piperacillin/Tazobactam/Dext 3.375 GM in Premix Bag 1 BAG IV SCH ×2 (01:42→07:48)
[2016-08-24] MEDS: Nystatin Topical Powder 15 GM Bottle TOP SCH (05:32)
[2016-08-24 08:08] VITALS: BP 135/64
[2016-08-24] MEDS: levETIRAcetam 250 MG Tab PO SCH (08:23)
[2016-08-24] MEDS: Aspirin 325 MG Tab.EC PO SCH (08:23)
[2016-08-24] MEDS: Tamsulosin 0.4 MG Cap.ER PO SCH (08:23)
[2016-08-24] MEDS: Lactobacillus Rhamnosus GG (Probiotic) Cap PO SCH (08:23)
[2016-08-24] MEDS ORDERED: Potassium Chloride 20 MEQ Tab.ER PO ONE (09:00)
[2016-08-24] MEDS ORDERED: Dimethicone 20%/Zinc Oxide 25% 56 GM Spray Bottle TOP PRN (09:00)
[2016-08-24] MEDS ORDERED: Magnesium Oxide 400 MG Tab PO SCH (09:00)
--- NOTE | 2016-08-24 09:09 | PCM.DCSUM1 ---
Discharge Summary - Hospital Course Brief History: Mr. Medina is an 80-year-old gentleman who is admitted through the emergency department with sepsis secondary to cellulitis of the abdominal wall. - Discharge Data Discharge Date: 08/24/16 Discharge Disposition: DC/Tfer to SNF 03 Condition: Fair - Discharge Diagnosis/Problem(s) (1) Cellulitis SNOMED Code(s): 762205162 ICD Code: L03.90 - CELLULITIS, UNSPECIFIED Status: Acute Current Visit: Yes (2) Dementia SNOMED Code(s): 28618659 ICD Code: F03.90 - UNSPECIFIED DEMENTIA WITHOUT BEHAVIORAL DISTURBANCE Status: Acute Current Visit: Yes (3) Sepsis SNOMED Code(s): 44027036 ICD Code: A41.9 - SEPSIS, UNSPECIFIED ORGANISM Status: Acute Current Visit: Yes (4) Urinary retention SNOMED Code(s): 584371441 ICD Code: R33.9 - RETENTION OF URINE, UNSPECIFIED Status: Acute Current Visit: No (5) CKD (chronic kidney disease) stage 3, GFR 30-59 ml/min SNOMED Code(s): 133855860 ICD Code: N18.3 - CHRONIC KIDNEY DISEASE, STAGE 3 (MODERATE) Status: Acute Current Visit: Yes (6) Palliative care patient SNOMED Code(s): 084139738 ICD Code: Z51.5 - ENCOUNTER FOR PALLIATIVE CARE Status: Acute Current Visit: Yes - Patient Summary/Data Hospital Course: Mr. Mendoza is an 80-year-old gentleman who was admitted through the emergency department with sepsis secondary to abdominal wall cellulitis. He fallen about a month prior to admission and been struggling with chest wall pain secondary to rib fractures. When he was brought into the emergency department was very unkempt and apparently had been lying in stool for some period of time. Family was not overly aware of when he last been well. He was found to have an elevated temperature associated with tachycardia and elevation in lactic acid level. Blood cultures were obtained at the time of admission and he was given IV fluids for hydration and management of sepsis as well as IV antibiotic therapy with Rocephin. He did well until the following afternoon when he redeveloped significant hypotension, he was again given vigorous IV fluid replacement for management of sepsis and transferred to the intensive care unit. With IV fluids his blood pressure stabilized, antibiotics were changed to Zosyn and vancomycin. Following this his renal insufficiency returned to baseline, fevers resolved and vital signs remained stable. Cellulitis improved significantly over the next several days and his white blood cell count had essentially normalized by the time of discharge. He had some difficulty with urination on admission and Min catheter was placed but this was removed prior to discharge. He will remain on oral antibiotics with cephalexin 500 mg 3 times a day for an additional 5 days. Activity will be as tolerated and he will resume his usual diet. [facility] and occupational therapy. - Patient Instructions Diet: Usual Diet as Tolerated Activity: As Tolerated Other/Special Instructions: Restorative physical therapy and occupational therapy [facility]. - Discharge Plan Prescriptions/Med Rec: Cephalexin 500 mg PO Q8H #15 tablet Lactobacillus Rhamnosus GG [Culturelle] 2 cap PO BID #56 cap Magnesium Oxide 400 mg PO BID #60 tablet Nystatin [Nystop] 0 gm TOP QID #1 bottle Home Medications: Home Meds Acetaminophen [Tylenol Arthritis Pain] 650 mg PO Q6H PRN 01/29/15 [History] Aspirin 325 mg PO DAILY 01/29/15 [History] Fluocinonide [Lidex 0.05% Crm] 1 applic TOP TID 01/29/15 [History] Lisinopril/Hydrochlorothiazide [Lisinopril-Hctz 20-12.5 mg Tab] 1 tab PO DAILY 01/29/15 [History] Metoprolol Tartrate [Lopressor] 50 mg PO BID 01/29/15 [History] Polyethylene Glycol 3350 [MiraLAX] 17 g PO DAILY 01/29/15 [History] Simvastatin 40 mg PO BEDTIME 01/29/15 [History] levETIRAcetam [Levetiracetam] 500 mg PO BID 01/29/15 [History] Tamsulosin [Flomax] 0.4 mg PO DAILY 08/05/16 [History] Cephalexin 500 mg PO Q8H #15 tablet 08/24/16 [Rx] Lactobacillus Rhamnosus GG [Culturelle] 2 cap PO BID #56 cap 08/24/16 [Rx] Magnesium Oxide 400 mg PO BID #60 tablet 08/24/16 [Rx] Nystatin [Nystop] 0 gm TOP QID #1 bottle 08/24/16 [Rx] Referrals: Myles Washington MD [Primary Care Provider] - - Patient Data Vitals - Most Recent: Last Vital Signs Temp 97.3 F 08/24/16 07:00 Pulse 88 08/24/16 07:00 Resp 16 08/24/16 07:00 BP 135/64 08/24/16 07:00 Pulse Ox 92 L 08/24/16 07:00 Weight - Most Recent: 160 lb 0.008 oz I&O - Last 24 hours: Intake & Output 08/23/16 08/24/16 08/24/16 22:59 06:59 14:59 Intake Total 540 400 50 Output Total 150 Balance 390 400 50 Lab Results - Last 24 hrs: Laboratory Results - last 24 hr 08/24/16 08/24/16 Range/Units 05:43 05:43 WBC 11.7 H (4.5-11.0) K/uL RBC 3.23 L (4.30-5.90) M/uL Hgb 10.0 L (12.0-15.0) g/dL Hct 30.1 L (40.0-54.0) % MCV 93 (80-98) fL MCH 31 (27-31) pg MCHC 33 (32-36) % Plt Count 332 (150-400) K/uL Neut % (Auto) 80 H (36-66) % Lymph % (Auto) 11 L (24-44) % [place]ores % (Auto) 5 (2-6) % Eos % (Auto) 4 (2-4) % Baso % (Auto) 0 (0-1) % Sodium 142 (140-148) mmol/L Potassium 3.2 L (3.6-5.2) mmol/L Chloride 111 H (100-108) mmol/L Carbon Dioxide 23 (21-32) mmol/L Anion Gap 11.2 (5.0-14.0) mmol/L BUN 24 H (7-18) mg/dL Creatinine 1.5 H (0.8-1.3) mg/dL Est Cr Clr Drug Dosing 30.55 mL/min Estimated GFR (MDRD) 45 L (>60) Glucose 95 (74-106) mg/dL Calcium 7.5 L (8.5-10.1) mg/dL Magnesium 1.6 L (1.8-2.4) mg/dL Med Orders - Current: Current Medications Acetaminophen (Tylenol) 650 mg PO Q4H PRN PRN Reason: Pain (Mild 1-3)/fever Last Admin: 08/22/16 08:43 Dose: 650 mg Aspirin (Ecotrin) 325 mg PO DAILY [facility] Last Admin: 08/24/16 08:23 Dose: 325 mg Dimethicone/Zinc Oxide (Rash Relief-Zinc Oxide [place]) 1 gm TOP ASDIRECTED PRN PRN Reason: Rash Enoxaparin Sodium (Lovenox) 30 mg SUBCUT Q24H [facility] Last Admin: 08/23/16 15:20 Dose: 30 mg Piperacillin/Tazobactam/ (Dextrose 3.375 gm/ Premix) 50 mls @ 100 mls/hr IV Q6H [facility] Last Admin: 08/24/16 07:48 Dose: 100 mls/hr Vancomycin HCl 1.3 gm/ Sodium (Chloride) 250 mls @ 167 mls/hr IV Q24H [facility] Last Admin: 08/23/16 15:21 Dose: 167 mls/hr Lactobacillus Rhamnosus (Culturelle) 2 cap PO BID [facility] Last Admin: 08/24/16 08:23 Dose: 2 cap Levetiracetam (Keppra) 500 mg PO BID [facility] Last Admin: 08/24/16 08:23 Dose: 500 mg Magnesium Oxide (Magnesium Oxide) 400 mg PO BID [facility] Last Admin: 08/24/16 08:55 Dose: 400 mg Melatonin (Melatonin) 9 mg PO BEDTIME [facility] Last Admin: 08/23/16 21:09 Dose: 9 mg Nystatin (Nystop) 0 gm TOP QID [facility] Last Admin: 08/24/16 05:32 Dose: 1 applic Ondansetron HCl (Zofran) 4 mg IV Q4H PRN PRN Reason: Nausea/Vomiting Simvastatin (Zocor) 40 mg PO BEDTIME [facility] Last Admin: 08/23/16 21:09 Dose: 40 mg Sodium Chloride (Saline Flush) 10 ml FLUSH ASDIRECTED PRN PRN Reason: Keep Vein Open Last Admin: 08/19/16 19:32 Dose: 10 ml Tamsulosin HCl (Flomax) 0.4 mg PO DAILY [facility] Last Admin: 08/24/16 08:23 Dose: 0.4 mg Discontinued Medications Clotrimazole (Lotrimin Af 1% Crm) 0 gm TOP BID PRN PRN Reason: Rash Al Hydroxide/Mg Hydroxide 15 (ml/ Lidocaine HCl 15 ml) 0 ml PO ONETIME ONE Stop: 08/21/16 15:49 Last Admin: 08/21/16 16:06 Dose: 30 ml Fluocinonide (Lidex 0.05% Crm) 0 gm TOP TID [facility] Last Admin: 08/22/16 09:30 Dose: Not Given Hydromorphone HCl (Dilaudid) 0.25 mg IVPUSH ONETIME ONE Stop: 08/19/16 20:07 Last Admin: 08/19/16 20:15 Dose: 0.25 mg Sodium Chloride (Normal Saline) 1,000 mls @ 999 mls/hr IV ASDIRECTED [facility] Last Admin: 08/19/16 19:33 Dose: 999 mls/hr Sodium Chloride (Normal Saline) 1,000 mls @ 999 mls/hr IV ASDIRECTED [facility] Last Admin: 08/19/16 19:50 Dose: 999 mls/hr Ceftriaxone Sodium 1 gm/ (Sodium Chloride) 50 mls @ 100 mls/hr IV ONETIME ONE Stop: 08/19/16 20:07 Last Admin: 08/19/16 19:51 Dose: 100 mls/hr Sodium Chloride (Normal Saline) 1,000 mls @ 125 mls/hr IV ASDIRECTED [facility] Ceftriaxone Sodium 1 gm/ (Sodium Chloride) 50 mls @ 100 mls/hr IV Q24H [facility] Vancomycin HCl 1.1 gm/ Sodium (Chloride) 250 mls @ 167 mls/hr IV Q24H [facility] Last Admin: 08/21/16 15:21 Dose: 167 mls/hr Sodium Chloride (Normal Saline) 500 mls @ 999 mls/hr IV ASDIRECTED ONE Stop: 08/20/16 16:00 Last Admin: 08/20/16 15:38 Dose: 999 mls/hr Sodium Chloride (Normal Saline) 1,000 mls @ 999 mls/hr IV ASDIRECTED ONE Stop: 08/20/16 17:30 Last Admin: 08/20/16 17:16 Dose: 999 mls/hr Sodium Chloride (Normal Saline) 1,000 mls @ 250 mls/hr IV ASDIRECTED [facility] Stop: 08/20/16 22:15 Last Admin: 08/20/16 19:04 Dose: 250 mls/hr Sodium Chloride (Normal Saline) 1,000 mls @ 125 mls/hr IV ASDIRECTED [facility] Last Admin: 08/22/16 00:39 Dose: 125 mls/hr Magnesium Sulfate 2 gm/ Premix 50 mls @ 25 mls/hr IV Q6H [facility] Stop: 08/21/16 23:59 Last Admin: 08/21/16 21:28 Dose: 25 mls/hr Sodium Chloride (Normal Saline) 1,000 mls @ 50 mls/hr IV ASDIRECTED [facility] Last Admin: 08/23/16 08:36 Dose: 50 mls/hr Magnesium Sulfate 2 gm/ Premix 50 mls @ 25 mls/hr IV ONETIME ONE Stop: 08/23/16 10:59 Last Admin: 08/23/16 08:37 Dose: 25 mls/hr Levetiracetam (Keppra) 500 mg PO ONETIME ONE Stop: 08/20/16 01:01 Last Admin: 08/20/16 00:56 Dose: 500 mg Morphine Sulfate (Morphine) 2 mg IVPUSH ONETIME ONE Stop: 08/21/16 15:03 Last Admin: 08/21/16 15:18 Dose: 2 mg Morphine Sulfate (Morphine) 2 mg IVPUSH ONETIME ONE Stop: 08/21/16 15:51 Last Admin: 08/21/16 19:26 Dose: Not Given Potassium Chloride (Klor-Con M20) 40 meq PO ONETIME ONE Stop: 08/21/16 09:01 Last Admin: 08/21/16 08:35 Dose: 40 meq Potassium Chloride (Klor-Con M20) 40 meq PO ONETIME ONE Stop: 08/24/16 09:01 Last Admin: 08/24/16 08:55 Dose: 40 meq Simvastatin (Zocor) 40 mg PO ONETIME ONE Stop: 08/20/16 01:01 Last Admin: 08/20/16 00:56 Dose: 40 mg Vancomycin HCl (Vancomycin) 1 gm IV .PHARMACY TO DOSE [facility] Stop: 08/20/16 18:00 *Q Meaningful Use (DIS) - VTE *Q VTE Criteria *Q: - Stroke *Q Stroke Criteria *Q: - AMI *Q AMI Criteria *Q:
== END 2016-08-24 10:00 | DRG 872 ==
LOC: JP.ED 18:23 → JP.MS 21:19 → JP.ICU 08-20 16:59
PROVIDERS: ADMIT Family Medicine; ATTEND Hospitalist
PROC: 0T2BX0Z Change Drainage Device in Bladder, External Approach (ICD-10-PCS; principal; 2016-08-19)
DX: A41.9 Sepsis, unspecified organism (principal); R21 Rash and other nonspecific skin eruption; I25.10 Atherosclerotic heart disease of native coronary artery without angina pectoris; E78.00 Pure hypercholesterolemia, unspecified; I10 Essential (primary) hypertension; K46.9 Unspecified abdominal hernia without obstruction or gangrene; Z85.828 Personal history of other malignant neoplasm of skin; L03.311 Cellulitis of abdominal wall; Z86.73 Personal history of transient ischemic attack (TIA), and cerebral infarction without residual deficits; S22.39XA Fracture of one rib, unspecified side, initial encounter for closed fracture; F03.90 Unspecified dementia, unspecified severity, without behavioral disturbance, psychotic disturbance, mood disturbance, and anxiety; R33.9 Retention of urine, unspecified; I12.9 Hypertensive chronic kidney disease with stage 1 through stage 4 chronic kidney disease, or unspecified chronic kidney disease; N18.3 Chronic kidney disease, stage 3 (moderate); R07.89 Other chest pain; W19.XXXA Unspecified fall, initial encounter; Y92.019 Unspecified place in single-family (private) house as the place of occurrence of the external cause; G40.909 Epilepsy, unspecified, not intractable, without status epilepticus; Z51.5 Encounter for palliative care; Z85.820 Personal history of malignant melanoma of skin; Z79.899 Other long term (current) drug therapy; E86.0 Dehydration; R53.1 Weakness
CPT/HCPCS: 36415; 51702; 71010 ×2; 80053; 83605; 85025; 87040 ×2; 96361; 96365; 96375; 99285; J0696; J1170; J7040 ×2; J7050 ×2; 80048; 80202; 81001; 83735; 85027; 93005; 93010; A9270-GY; J1650; J2270; J2543; J3370; J3475